=== PATIENT | male | born 1985 | race Two or more races ===

== ENCOUNTER 2025-06-07 13:36 | Emergency (ER) | payer OTHER ==
[~2025-06-07] VITALS: Ht 167.6 cm; Wt 80.0 kg
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
[2025-06-07] MEDS ORDERED: IBUP-1456 PO (15:19)
[2025-06-07 15:40] VITALS: BP 133/90; PULSE 83; RESP 18; TEMP 98.1; O2SAT 98
== END 2025-06-07 13:51 | disposition home or self-care (01) ==
LOC: ER 13:36
DX: S29.011A Strain of muscle and tendon of front wall of thorax, initial encounter (principal); S30.11XA Contusion of abdominal wall, initial encounter; V89.2XXA Person injured in unspecified motor-vehicle accident, traffic, initial encounter; Y93.89 Activity, other specified; Y92.410 Unspecified street and highway as the place of occurrence of the external cause; Y99.8 Other external cause status
CPT/HCPCS: 71046